=== PATIENT | female | born 1960 | race Caucasian/White ===

== ENCOUNTER 2016-12-09 08:15 | Emergency (ER) | payer OTHER ==
[~2016-12-09] VITALS: Ht 162.6 cm; Wt 66.3 kg
[2016-12-09 08:16] VITALS: BP 127/81
[2016-12-09] MEDS ORDERED: FLUORESCEIN OPHTHALMIC 1 MG STRIP ONE (08:30)
[2016-12-09] MEDS ORDERED: PROPARACAINE OPHTH 0.5%, 15ML EACHEYE ONE (08:30)
[2016-12-09] MEDS ORDERED: FLUORESCEIN OPHTHALMIC 1 MG STRIP EACHEYE ONE (08:30)
[2016-12-09] MEDS ORDERED: PROPARACAINE OPHTH 0.5%, 15ML ONE (08:31)
== END 2016-12-09 09:05 | disposition home or self-care (01) ==
LOC: ED 08:55
DX: H00.012 Hordeolum externum right lower eyelid (principal)
CPT/HCPCS: 99283

== ENCOUNTER → 2017-03-29 | Outpatient (CLI) | payer OTHER | END | disposition home or self-care (01) | LOC: CFH 09:56 | PROVIDERS: ATTEND Nurse Practitioner Family | DX: Z12.31 Encounter for screening mammogram for malignant neoplasm of breast (principal) | CPT/HCPCS: G0202 ==

== ENCOUNTER → 2020-04-22 | Outpatient (CLI) | payer OTHER | END | disposition home or self-care (01) | LOC: CFH 07:22 | PROVIDERS: ATTEND Family Medicine | DX: Z12.31 Encounter for screening mammogram for malignant neoplasm of breast (principal) | CPT/HCPCS: 77067 ==

== ENCOUNTER 2021-04-27 09:59 | Outpatient (CLI) | payer OTHER | END 2021-04-27 23:59 | disposition home or self-care (01) | LOC: CFH 09:59 | PROVIDERS: ATTEND Nurse Practitioner Family | DX: Z12.31 Encounter for screening mammogram for malignant neoplasm of breast (principal) | CPT/HCPCS: 77063; 77067 ==